=== PATIENT | female | born 1985 | race Caucasian/White ===

== ENCOUNTER 2017-03-26 03:48 | Emergency (ER) | payer OTHER ==
[~2017-03-26] VITALS: Ht 162.6 cm; Wt 58.1 kg
--- NOTE | 2017-03-26 03:55 | NUR ---
TO BED 1 A 31 YO FEMALE PATIENT W C/O CHEST PRESSURE THAT WOKE HER UP X1 HOUR WITH SOB. NOTED WITH YANET LOWER EXTREMITY SWELLING SINCE 10 DAYS AGO AFTER A FLIGHT FROM [place] TO [place]. UPON ARRIVAL TO ER, PATIENT IS AAOX4, NAD NOTED. BREATHING EVEN AND UNLABORED. NONDIAPHORETIC. PLACED ON CARDIAC AND VS MONITORING. GOWNED. COMFORT MEASURES RENDERED.
--- NOTE | 2017-03-26 04:05 | NUR ---
DR FRAIRE AT BEDSIDE TO EVAL.
--- NOTE | 2017-03-26 04:10 | NUR ---
STARTED A SALINE LOCK ON THE LAC G20, BLOOD DRAWN AND SENT TO LAB.
--- NOTE | 2017-03-26 04:15 | NUR ---
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
--- NOTE | 2017-03-26 04:30 | NUR ---
Note lorenajono in EDM - 03/26/17 at 0500 by VIVIEN TO BED 1 A 31 YO FEMALE PATIENT W C/O CHEST PRESSURE THAT WOKE HER UP X1 HOUR WITH SOB. NOTED WITH YANET LOWER EXTREMITY SWELLING SINCE 10 DAYS AGO AFTER A FLIGHT FROM [place] TO [place]. UPON ARRIVAL TO ER, PATIENT IS AAOX4, NAD NOTED. BREATHING EVEN AND UNLABORED. NONDIAPHORETIC. PLACED ON CARDIAC AND VS MONITORING. GOWNED. COMFORT MEASURES RENDERED.
[2017-03-26 04:41] LABS: BASOPHILS # (AUTO) 0.1 /CMM (0.0-0.2); EOSINOPHILS # (AUTO) 0.3 /CMM (0.0-0.7); EOSINOPHILS % (AUTO) 3.8 % (0.0-6.0); HEMATOCRIT 38 % (33-45); HEMOGLOBIN 12.9 g/dL (11.5-14.8); LYMPHOCYTES # (AUTO) 2.2 /CMM (0.8-4.8); LYMPHOCYTES % (AUTO) 27.9 % (20.0-44.0); MEAN CORPUSCULAR HEMOGLOBIN 38 PG (26.0-33.0); MEAN CORPUSCULAR HGB CONC 34 g/dl (31.0-36.0); MEAN CORPUSCULAR VOLUME 112 fL (82-100); MONOCYTES # (AUTO) 0.6 /CMM (0.1-1.30); NEUTROPHILS # (AUTO) 4.8 /CMM (1.8-8.9); NEUTROPHILS % (AUTO) 60.3 % (43.0-81.0); PLATELET COUNT (AUTO) 420 /CMM (150-450); RDW COEFFICIENT OF VARIATION 15.7 (11.5-15.0); RED BLOOD CELL COUNT(AUTO) 3.43 MIL/uL (4.0-5.2); WHITE BLOOD COUNT (AUTO) 7.9 K/uL (4.3-11.0)
[2017-03-26 04:51] LABS: CALCIUM, SERUM 9.1 mg/dL (8.5-10.1); CARBON DIOXIDE 29 mmol/L (21-32); CHLORIDE 105 mmol/L (98-107); CREATININE 0.7 mg/dL (0.6-1.3); GLUCOSE 90 mg/dL (74-106); POTASSIUM 3.6 mmol/L (3.5-5.1); SODIUM SERUM 142 mmol/L (136-145); UREA NITROGEN, BLOOD 6 mg/dL (7-18)
[2017-03-26 04:53] LABS: INR 0.94 (0.87-1.13)
[2017-03-26 04:58] LABS: TROPONIN I < 0.017 ng/mL (0.00-0.056)
[2017-03-26 05:05] LABS: ALANINE AMINOTRANSFERASE 38 U/L (12-78); ALBUMIN 3.5 g/dL (3.4-5.0); ALKALINE PHOSPHATASE 80 U/L (46-116); ASPARTATE AMINOTRANSFERASE 48 U/L (15-37); B-TYPE NATRIURETIC PEPTIDE 198 PG/ML (0-125); BILIRUBIN,DIRECT 0.1 mg/dL (0.0-0.2); BILIRUBIN,TOTAL 0.2 mg/dL (0.2-1.0); TOTAL PROTEIN, SERUM 7.3 g/dL (6.4-8.2)
[2017-03-26] MEDS ORDERED: IOHEXOL-350 100 ML VIAL IV ONE (05:05)
[2017-03-26] MEDS ORDERED: IV NS 0.9% 250 ML IV ONE (05:06)
--- NOTE | 2017-03-26 05:06 | NUR ---
SIS ONGOING AT BEDSIDE.
--- NOTE | 2017-03-26 05:47 | NUR ---
patient to cat scan.
[2017-03-26 06:16] LABS: BAND % (MANUAL) 1 % (0.0-5.0); EOSINOPHILS % (MANUAL) 5 % (0-4); LYMPHOCYTES % (MANUAL) 36 % (16-48); MONOCYTES % (MANUAL) 5 % (0-11.0); NEUTROPHILS % (MANUAL) 53 (42-76)
--- NOTE | 2017-03-26 06:23 | NUR ---
PATIENT NOTED SLEEPING COMFORTABLY IN BED, NAD NOTED. VSS.
--- NOTE | 2017-03-26 07:07 | NUR ---
IV removed. Catheter intact and site benign. Pressure and 4x4 applied to site. No bleeding noted. Patient discharged to home in stable condition. Written and verbal after care instructions given. Patient verbalizes understanding of instruction. Patient is ambulatory with steady gait, no further complaints.
[2017-03-26 07:08] VITALS: BP 99/68
== END 2017-03-26 07:08 | disposition home or self-care (01) ==
LOC: ER 03:53
DX: R07.89 Other chest pain (principal); Z85.41 Personal history of malignant neoplasm of cervix uteri
CPT/HCPCS: 36415; 71010; 71275; 80048; 80076; 83880; 84484; 84703; 85025; 85730; 93005; 93970; 99285; A4606; J7050; Q9967; Z7610